=== PATIENT | female | born 1995 | race Caucasian/White ===

== ENCOUNTER 2020-12-15 08:02 | Outpatient (CLI) | payer OTHER, SELFPAY ==
--- NOTE | ~2020-12-15 | XR_ITS ---
EXAMINATION: XR hysterosalpingogram DATE: 12/15/2020 13:00 CDT INDICATION: Infertility TECHNIQUE: Fluoroscopy was provided for a hysterosalpingogram performed by Dr. Cheyenne Gonsales. FINDINGS: There is normal intraluminal morphology of the uterus. The fallopian tubes are normal in a ppearance and are widely patent, with free spill into the peritoneal cavity from both sides. IMPRESSION: 1. Normal hysterosalpingogram. The uterus demonstrates normal intraluminal morphology and both fall opian tubes are patent. Reviewed, dictated and finalized at location A. IMPRESSION: 1. Normal hysterosalpingogram. The uterus demonstrates normal intraluminal mo rphology and both fallopian tubes are patent.
[2020-12-15 09:49] LABS: Beta HCG Quantitative < 2.39 mIU/ML
--- NOTE | 2020-12-15 12:24 | W.PM.PROC2 ---
Procedure Note - Detailed Date of Procedure 12/15/20 Pre-op Diagnosis Hx of infectious and parasitic disease (chlamydia) Post-op Diagnosis same Procedure Performed [facility] Surgeon Cheyenne Gonsales MD Anesthesia none Indications H/o chlamydia, desiring Findings normal endometrial cavity, bilateral patent fallopian tubes Description of Procedure Speculum was placed and cervix swabbed with Betadine. Catheter wouldn't pass at first, so tenaculum paced on anterior lip of cervix then catheter passed easily and balloon inflated. Once radiologist ready, dye was injected into uterus. Immediate bilateral spillage from both fallopian tubes visualized, and endometrial cavity appeared normal shape. Catheter and speculum removed. She tolerated procedure well Estimated Blood Loss 5 Drains No Packing No Pathology none sent Complications No immediate complications Condition stable Disposition other (home)
== END 2020-12-15 08:03 | disposition home or self-care (01) ==
PROVIDERS: PCP Nurse Practitioner Family; Visit Provider Obstetrics & Gynecology
DX: Z86.19 Personal history of other infectious and parasitic diseases (principal)
CPT/HCPCS: 36415; 58340; 74740; 84702; Q9966

== ENCOUNTER 2021-03-07 15:43 | Outpatient (CLI) | payer OTHER, SELFPAY ==
[2021-03-07 17:12] LABS: Basophils Percent Auto 0.3 % (0.2-1.2); Eosinophils Absolute Auto 0.3 K/mm3 (0-0.3); Eosinophils Percent Auto 1.9 % (0-4.4); Hematocrit 37.4 % (37.0-47.0); Hemoglobin 12.8 g/dL (12.0-15.0); Immature Granulocyte Absolute 0.07 K/mm3 (0.00-0.031); Immature Granulocyte Percent A 0.5 % (0-0.5); Lymphocytes Absolute Auto 2.84 K/mm3 (0.9-3.2); Lymphocytes Percent Auto 21.1 % (18.3-44.2); Mean Corpuscular HGB Conc 34.2 g/dl (32-36); Mean Corpuscular Hemoglobin 30.4 pg (26-34); Mean Corpuscular Volume 88.8 fl (80-100); Mean Platelet Volume 10.6 fl (7.4-10.4); Monocytes Absolute Auto 0.9 K/mm3 (0.1-0.6); Monocytes Percent Auto 6.5 % (2.6-8.5); Neutrophils Absolute Auto 9.4 K/mm3 (1.3-6.7); Neutrophils Percent Auto 69.7 % (45.5-73.1); Platelet Count Result 306 k/mm3 (150-375); Red Blood Count 4.21 M/mm3 (4.2-5.4); Red Cell Distribution Width 12.6 % (11.5-14.5); White Blood Count 13.4 K/mm3 (4.5-10.0)
[2021-03-07 17:36] LABS: Add Urine Microscopic? YES; Appearance Urine Cloudy (Clear); Bacteria Urine Trace /hpf; Bilirubin Urine Negative (Negative); Blood Urine Negative (Negative); Calcium Oxalate Crystals Urine Many /hpf; Color Urine Yellow (Yellow); Glucose Urine UA Negative (Negative); Ketones Urine Negative (Negative); Leukocyte Esterase Ur Negative LEU/UL (NEGATIVE); Mucus Urine Rare /lpf; Nitrate Urine Negative (Negative); Protein Urine Negative (Negative); RBC Urine 0-2 /hpf (0-2); Specific Grav Ur 1.027 (1.001-1.035); Squamous Epithelial Cell Urine Many /hpf (Few); Urobilinogen Urine Negative mg/dL (<2.0); WBC Urine 0-3 /hpf (0-3)
[2021-03-07 17:44] LABS: Thyroid Stimulating Hormone 0.709 uIU/mL (0.465-4.680)
[2021-03-07 17:46] LABS: HIV 1/2 Ab P24 Ag Result Negative (Negative)
[2021-03-07 21:21] LABS: Hepatitis B Surface Antigen Negative (Negative); Rubella IgG Antibody 6.1 IU/ML
[2021-03-07 21:30] LABS: Hepatitis C Virus Antibody Negative (Negative)
[2021-03-08 11:55] LABS: Rapid Plasma Reagin Non-Reactive (NonReactive)
[2021-03-12 20:57] LABS: Hematocrit 38.9 % (35.0-45.0); Hemoglobin 13.1 g/dL (11.7-15.5); MCH 31.3 pg (27.0-33.0); MCV 92.8 fL (80.0-100.0); RDW 14.3 % (11.0-15.0); Red Blood Cell Count 4.19 Mill/uL (3.80-5.10)
== END 2021-03-07 15:44 | disposition home or self-care (01) ==
LOC: ANHLAB 15:45
PROVIDERS: PCP Nurse Practitioner Family; Visit Provider Obstetrics & Gynecology
DX: Z34.90 Encounter for supervision of normal pregnancy, unspecified, unspecified trimester (principal); Z3A.00 Weeks of gestation of pregnancy not specified
CPT/HCPCS: 36415; 81001; 83021; 84443; 85025; 86592; 86703; 86762; 86787; 86803; 86850; 86900; 86901; 87340; G0432

== ENCOUNTER 2021-05-07 15:06 | Outpatient (CLI) | payer OTHER, SELFPAY ==
--- NOTE | ~2021-05-07 | US_ITS ---
EXAMINATION: US OB /maternal detail DATE: 05/07/2021 15:58 INDICATION: Second trimester anatomic survey TECHNIQUE: Real-time ultrasound of the pelvis was performed. COMPARISON: None. FINDINGS: There is a single living fetus in vertex presentation. The placenta is posterior and 3.5 cm from the internal cervical os. heart rate is 155 beats per minute (bpm). cardiac activity and fet al movement are noted. The amniotic fluid index is subjectively normal. The following anatomy was identified as normal: 4 chamber heart 3 vessel cord cord insertion kidneys urinary bladder stomach spine diaphragm ventricles cisterna magna cerebellum The following biometric data were obtained: Biparietal diameter (BPD): 4.8 cm; head circumference (HC): 17.4 cm; abdominal circumference (AC): 15 .4 cm; femur length (FL): 3.3 cm. These measurements are concordant. Estimated weight is 350 g +/- 52 g, which correlates with the 10th percentile when 09/15/2021 is used as estimated date of delivery. As single measurements, these parameters are each equal to the following estimated gestational ages w ith ranges of +/- 2 standard deviations: BPD: 20 weeks 4 days +/- 1 weeks 5 days. HC: 20 weeks 0 days +/- 1 weeks 3 days. AC: 20 weeks 4 days +/- 2 weeks 0 days. FL: 20 weeks 2 days +/- 1 weeks 6 days. estimated gestational age based solely on measurements from this exam is 20 weeks 3 days +/- 1 weeks 3 days. IMPRESSION: 1. Single living fetus in vertex presentation. 2. Estimated weight is 350 g +/- 52 g, which correlates with the 10th percentile when 09/15/2021 is used as estimated date of delivery. Reviewed, dictated and finalized at location A. K CHASER IMPRESSION: 1. Single living fetus in vertex presentation. 2. Estimated weight is 350 g +/- 52 g, which correlates with the 10th per centile when 09/15/2021 is used as estimated date of delivery.
== END 2021-05-07 15:07 | disposition home or self-care (01) ==
LOC: ANHIMG 15:11
PROVIDERS: PCP Nurse Practitioner Family; Visit Provider Obstetrics & Gynecology
DX: Z36.3 Encounter for antenatal screening for malformations (principal); Z3A.20 20 weeks gestation of pregnancy
CPT/HCPCS: 76805

== ENCOUNTER 2021-05-31 08:54 | Outpatient (CLI) | payer OTHER, SELFPAY ==
--- NOTE | ~2021-05-31 | US_ITS ---
EXAMINATION: US OB follow up DATE: 05/31/2021 09:23 INDICATION: growth assessment, second trimester TECHNIQUE: Real-time ultrasound of the pelvis was performed. The interpreting radiologist was not pre sent for the study. COMPARISON: 05/07/2021 FINDINGS: There is a single living fetus in vertex presentation. The placenta is posterior. car diac activity and movement are noted. heart rate is 159 beats per minute (bpm). The amnio tic fluid index is 7.5 cm which is low (normal range: 9.8 cm to 21.9 cm). The following biometric data were obtained: Biparietal diameter (BPD): 5.8 cm; head circumference (HC): 22.0 cm; abdominal circumference (AC): 19 .5 cm; femur length (FL): 4.3 cm. These measurements are concordant. Estimated weight is 655 g +/- 98 g, which correlates with the 16th percentile when 09/15/2021 is used as estimated date of delivery. As single measurements, these parameters are each equal to the following estimated gestational ages w ith ranges of +/- 2 standard deviations: BPD: 23 weeks 4 days +/- 1 weeks 5 days. HC: 24 weeks 0 days +/- 2 weeks 0 days. AC: 24 weeks 1 days +/- 2 weeks 1 days. FL: 23 weeks 6 days +/- 1 weeks 6 days. estimated gestational age based solely on measurements from this exam is 23 weeks 6 days +/- 1 weeks 5 days. IMPRESSION: 1. Single living fetus in vertex presentation. 2. Oligohydramnios. 3. Estimated weight is 655 g +/- 98 g, which correlates with the 16th percentile when 09/15/2021 is used as estimated date of delivery. Reviewed, dictated and finalized at location B. DEVELOPER IMPRESSION: 1. Single living fetus in vertex presentation. 2. Oligohydramnios. 3. Estimated weight is 655 g +/- 98 g, which correlates with the 16th per centile when 09/15/2021 is used as estimated date of delivery.
== END 2021-05-31 08:55 | disposition home or self-care (01) ==
LOC: ANHIMG 08:59
PROVIDERS: PCP Nurse Practitioner Family; Visit Provider Obstetrics & Gynecology
DX: O36.5920 Maternal care for other known or suspected poor fetal growth, second trimester, not applicable or unspecified (principal); Z3A.23 23 weeks gestation of pregnancy
CPT/HCPCS: 76816

== ENCOUNTER 2021-06-11 13:07 | Outpatient (CLI) | payer OTHER, SELFPAY ==
--- NOTE | ~2021-06-11 | US_ITS ---
EXAMINATION: US OB follow up w [facility] DATE: 06/11/2021 14:34 INDICATION: Oligohydramnios, unspecified trimester TECHNIQUE: Real-time pelvic ultrasound was performed. The interpreting radiologist was not present fo r the study. COMPARISON: 05/31/2021 FINDINGS: There is a single living fetus in vertex presentation. The placenta is posterior. heart rate is 140 beats per minute (bpm). The amniotic fluid index is 7.7 cm which is low (normal range: 9.7 cm to 21.6 cm). Biophysical profile performed by the technologist: breathing (30 sec sustained breathing in 30 minutes): 0 out of 2 movement (3 gross body movements in 30 minutes): 2 out of 2 tone (one episode of lmoqwff-bviairbuv-nqzabzz limb movement): 2 out of 2 Amniotic fluid pocket (2 cm): 2 out of 2 Total score: 6 out of 8 The following biometric data were obtained: Biparietal diameter (BPD): 6.1 cm; head circumference (HC): 22.9 cm; abdominal circumference (AC): 21 .5 cm; femur length (FL): 4.7 cm. These measurements are concordant. Estimated weight is 834 g +/- 125 g, which correlates with the 16th percentile when 09/15/2021 i s used as estimated date of delivery. As single measurements, these parameters are each equal to the following estimated gestational ages w ith ranges of +/- 2 standard deviations: BPD: 24 weeks 5 days +/- 2 weeks 1 days. HC: 25 weeks 0 days +/- 2 weeks 0 days. AC: 26 weeks 0 days +/- 2 weeks 1 days. FL: 25 weeks 4 days +/- 2 weeks 1 days. estimated gestational age based solely on measurements from this exam is 25 weeks 2 days +/- 1 weeks 5 days. IMPRESSION: 1. Single living fetus in vertex presentation. 2. Biophysical profile 6 out of 8. No points for breathing. 3. Oligohydramnios. 4. Estimated weight is 834 g +/- 125 g, which correlates with the 16th percentile when 2 is used as estimated date of delivery. Reviewed, dictated and finalized at location B. IMPRESSION: 1. Single living fetus in vertex presentation. 2. Biophysical profile 6 out of 8. No points for breathing. 3. Oligohydramnios. 4. Estimated weight is 834 g +/- 125 g, which correlates with the 16th pe rcentile when 09/15/2021 is used as estimated date of delivery.
== END 2021-06-11 13:08 | disposition home or self-care (01) ==
LOC: ANHIMG 13:12
PROVIDERS: PCP Nurse Practitioner Family; Visit Provider Obstetrics & Gynecology
DX: O41.02X0 Oligohydramnios, second trimester, not applicable or unspecified (principal); Z3A.25 25 weeks gestation of pregnancy
CPT/HCPCS: 76816; 76819